=== PATIENT | female | born 1990 | race Caucasian/White ===

== ENCOUNTER 2016-04-09 19:36 | Emergency (ER) | payer OTHER ==
[~2016-04-09] VITALS: Ht 165.1 cm; Wt 53.5 kg
[2016-04-09 19:36] VITALS: BP 121/71
[2016-04-09] MEDS ORDERED: TDAP [DIPH/PERTUSSIS/TET] 0.5 ML VIAL IM ONE ×2 (21:00→21:12)
== END 2016-04-09 21:31 | disposition home or self-care (01) ==
LOC: ER 19:39
DX: S61.002A Unspecified open wound of left thumb without damage to nail, initial encounter (principal); Z88.8 Allergy status to other drugs, medicaments and biological substances; W26.8XXA Contact with other sharp object(s), not elsewhere classified, initial encounter; Y93.89 Activity, other specified; Y92.89 Other specified places as the place of occurrence of the external cause; Y99.8 Other external cause status
CPT/HCPCS: 90471; 90715; 99283; A4606; Z7610